=== PATIENT | female | born 1995 | race Caucasian/White ===

== ENCOUNTER 2021-04-08 13:22 | Emergency (ER) | payer OTHER ==
[~2021-04-08] VITALS: Ht 154.9 cm; Wt 68.0 kg
[2021-04-08 13:34] LABS: URINE BLOOD 1+ (Negative); URINE CLARITY CLEAR; URINE COLOR YELLOW; URINE GLUCOSE-RANDOM 2+ (Negative); URINE KETONES 1+ (Negative); URINE PROTEIN 3+ (Negative); URINE UROBILINOGEN >= 8.0 E.U./dl (0.2-1.0)
[2021-04-08 13:36] LABS: ICTOTEST (BILI CONFIRMATORY) Positive (Negative); URINE BILIRUBIN 2+ (Negative); URINE LEUKOCYTES-REFLEX 2+ (Negative); URINE NITRITE-REFLEX POSITIVE (Negative)
[2021-04-08 13:38] LABS: CASTS None Seen /LPF (None Seen); SQUAMOUS 0-3 Few /LPF (0-3); URINE RBC 0-2 Rare /HPF (0-2); URINE WBC-REFLEX 6-15 Few /HPF (0-5)
[2021-04-08] MEDS ORDERED: LEXAPRO20 MG PO (13:41)
[2021-04-08 13:51] LABS: CRYSTALS None Seen /LPF (None Seen)
[2021-04-08] MEDS ORDERED: APAP W/CODEINE1 TA2 PO ×2 (13:56→14:25)
[2021-04-08] MEDS ORDERED: ONDANSETRON ODT4 MG PO ×2 (13:57→14:25)
[2021-04-08] MEDS ORDERED: BACTRIM DS TAB1 EACH PO ×2 (13:57→14:25)
[2021-04-08 14:00] VITALS: BP 123/61
== END 2021-04-08 14:00 | disposition home or self-care (01) ==
LOC: M.ERS 13:22
PROVIDERS: Physician Assistant
DX: N39.0 Urinary tract infection, site not specified (principal); Z88.1 Allergy status to other antibiotic agents